=== PATIENT | male | born 1995 | race African-American/Black ===

== ENCOUNTER 2025-03-22 06:37 | Emergency (ER) | payer SELFPAY ==
[~2025-03-22] VITALS: Ht 177.8 cm; Wt 65.0 kg
[2025-03-22 06:40] VITALS: BP 146/92; PULSE 90; RESP 16; TEMP 36.7; O2SAT 98
== END 2025-03-22 08:23 | disposition left against medical advice (07) ==
LOC: ER 06:37
DX: R53.1 Weakness (principal)
CPT/HCPCS: 99281